=== PATIENT | female | born 2000 | race African-American/Black ===

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

== ENCOUNTER 2020-08-15 23:37 | Emergency (ER) | payer OTHER ==
[~2020-08-15] VITALS: Ht 172.7 cm; Wt 80.9 kg
[~2020-08-15 23:37] MED LIST changes: -CLIN300C8 PO; +CLIN300C9 PO
[2020-08-15 23:40] VITALS: BP 137/89
[2020-08-15] MEDS ORDERED: LIDOCAINE 2%/EPI 1:100,000 20 ML VIAL. INJ ONE (23:45)
[2020-08-15] MEDS ORDERED: NEOMY/BACITR/POLYMYXIN OINT PACKET. TP ONE (23:45)
--- NOTE | 2020-08-16 00:20 | RAD ---
XR RT WRIST 3VIEWS History: Reason: laceration w/ glass, eval for retained foreign body / Spl. Instructions: / History: Technique: 3 views right wrist Comparison: None. Findings: Normal alignment. No fracture. No radiopaque foreign body. Ventral wrist soft tissue injury. Impression: 1. No acute osseous abnormality. No radiopaque foreign body. Electronically signed by: Robin Hernandez DO (08/16/2020 12:18 AM) [facility]
--- NOTE | 2020-08-16 00:29 | PHYS DOC ---
Past Medical History Past Medical History: No Pertinent History Additional Past Medical Histor: DRUG O.D. Past Surgical History: No Surgical History Smoking Status: Never Smoker Alcohol Use: None Drug Use: None General Adult EDM: Chief Complaint: LACERATION/AVULSION HPI: HPI: Patient is a 19 year old [f__sex] who presents with [] Review of Systems: Review of Systems: Constitutional: Denies fever or chills Eyes: Denies redness or eye pain HENT: Denies nasal congestion or sore throat Respiratory: Denies cough or shortness of breath Cardiovascular: Denies chest pain or palpitations GI: Denies abdominal pain, nausea, or vomiting : Denies dysuria or hematuria Musculoskeletal: Denies back pain or joint pain Integument: Denies rash or skin lesions Neurologic: Denies headache, focal weakness or sensory changes Complete systems were reviewed and found to be within normal limits, except as documented in this note. Heart Score: C/O Chest Pain: N/A Current Medications: Current Medications Medications (Trade) Dose Ordered Sig/Collin Start Time Stop Time Status Last Admin Dose Admin Acetaminophen (Tylenol) 500 mg 1X ONCE 08/16/20 00:30 08/16/20 00:31 08/16/20 00:09 500 MG Diphtheria/ Tetanus/Acell Pertussis (ADACEL TDap SYRINGE) 0.5 ml ONCE ONCE 08/16/20 00:30 08/16/20 00:31 08/16/20 00:11 0.5 ML Lidocaine/ Epinephrine (LIDOCAINE 2%-EPI 1:100,000 multi-dose) 20 ml 1X ONCE 08/15/20 23:45 08/15/20 23:46 DC 08/15/20 23:48 20 ML Neomycin/ Polymyxin/ Bacitracin (Triple Antibiotic Ointment) 1 pkt 1X ONCE 08/15/20 23:45 08/15/20 23:46 DC 08/15/20 23:48 1 PKT Allergies: Allergies: Allergies Coded Allergies Type Severity Reaction Last Updated Verified No Known Allergies Allergy Unknown 12/08/16 Yes Physical Exam: PE: Constitutional: Well developed, well nourished, no acute distress, non-toxic appearance HENT: Normocephalic, atraumatic Eyes: PERRL, EOMI, conjunctiva normal, no discharge Neck: Normal range of motion, no tenderness, supple Lungs & Thorax: No respiratory distress, equal chest rise and fall Abdomen: Soft, no tenderness Skin: Warm, dry, no erythema, no rash Back: No tenderness, no CVA tenderness Extremities: No tenderness, ROM intact, no edema Neurologic: Alert and oriented X 3, normal motor function, normal sensory function, no focal deficits noted Psychologic: Affect normal, judgment normal EKG: EKG: [] Radiology/Procedures: Radiology/Procedures: PROCEDURE: WRIST 3V RIGHT XR RT WRIST 3VIEWS History: Reason: laceration w/ glass, eval for retained foreign body / Spl. Instructions: / History: Technique: 3 views right wrist Comparison: None. Findings: Normal alignment. No fracture. No radiopaque foreign body. Ventral wrist soft tissue injury. Impression: 1. No acute osseous abnormality. No radiopaque foreign body. Electronically signed by: Robin Hernandez DO (08/16/2020 12:18 AM) [facility] Course & Med Decision Making: Course & Med Decision Making Patient stable for discharge with outpatient follow-up with PCP. Discussed findings and plan with patient, who acknowledges understanding and agreement. Amanda Disclaimer: Last [employer] Disclaimer: This electronic medical record was generated, in whole or in part, using a voice recognition dictation system. Departure Departure Impression: Primary Impression: Laceration of wrist, right Qualified Codes: S61.511A - Laceration without foreign body of right wrist, initial encounter Disposition: HOME / SELF CARE / HOMELESS Condition: STABLE Referrals: NO PCP (PCP) Patient Instructions: Laceration Care, Adult, [id number] Additional Instructions: Try to leave pressure dressing on for as long as possible but less than 24 hours. Do not soak your wound. You may shower. Clean wound daily with soap and water. Change dressing 2 times daily. Use over the counter antibiotic ointment with each dressing change. Use [id number] ibuprofen and/or Tylenol for pain or discomfort. GONZALO FERNANDO DO Aug 16, 2020 00:29
[2020-08-16] MEDS ORDERED: DIPH,PERTUSS(ACELL),TET VAC/PF 0.5 ML SYRINGE. VAX IM ONE (00:30)
[2020-08-16] MEDS ORDERED: ACETAMINOPHEN 500 MG TABLET PO ONE (00:30)
== END 2020-08-16 00:42 | disposition home or self-care (01) ==
LOC: ER 23:37
DX: S61.511A Laceration without foreign body of right wrist, initial encounter (principal); W25.XXXA Contact with sharp glass, initial encounter; Y93.89 Activity, other specified; Y92.89 Other specified places as the place of occurrence of the external cause; Y99.8 Other external cause status
CPT/HCPCS: 73110; 90471; 90715; 99283; J3490

== ENCOUNTER 2020-12-24 15:36 | Emergency (ER) | payer OTHER ==
[~2020-12-24] VITALS: Ht 167.6 cm; Wt 72.7 kg
[~2020-12-24 15:36] MED LIST changes: +CLIN-94 PO; -CLIN300C9 PO
[2020-12-24 16:05] VITALS: BP 141/85
[2020-12-24] MEDS ORDERED: NEOM10DR32 AS (16:25)
--- NOTE | 2020-12-24 16:25 | PHYS DOC ---
Past Medical History Additional Past Medical Histor: DRUG O.D. (RAMIREZ DANG STORAGE ARCHITECT) Past Surgical History: No Surgical History [facility] Smoking Status: Never Smoker Alcohol Use: None Drug Use: None ([facility]) General Adult EDM: Chief Complaint: EARACHE/EAR PAIN HPI: HPI: Patient is a 20 year old female who presents with 1 day of left ear muffled hearing and pain. She denies nasal congestion, cough, fever, headache, dizziness, nausea, vomiting, abdominal pain. Only history is a drug overdose. Rates her pain at a 4 out of 10. She states she did pour water in the ear and also was digging around the ear with a Q-tip. (RAMIREZ DANG STORAGE ARCHITECT) Review of Systems: Review of Systems: Constitutional: Denies fever or chills. [] Eyes: Denies change in visual acuity. [] HENT: Denies nasal congestion or sore throat. + Left ear pain with muffled hearing [] Respiratory: Denies cough or shortness of breath. [] Cardiovascular: Denies chest pain or edema. [] GI: Denies abdominal pain, nausea, vomiting, bloody stools or diarrhea. [] : Denies dysuria. [] Musculoskeletal: Denies back pain or joint pain. [] Integument: Denies rash. [] Neurologic: Denies headache, focal weakness or sensory changes. [] Endocrine: Denies polyuria or polydipsia. [] Lymphatic: Denies swollen glands. [] Psychiatric: Denies depression or anxiety. [] (RAMIREZ DANG STORAGE ARCHITECT) Heart Score: C/O Chest Pain: No ([facility]) Allergies: Allergies: Allergies Coded Allergies Type Severity Reaction Last Updated Verified No Known Allergies Allergy Unknown 12/08/16 Yes ([facility]) Physical Exam: PE: Constitutional: Well developed, well nourished, no acute distress, non-toxic appearance. [] HENT: Normocephalic, atraumatic, bilateral external ears normal, oropharynx moist, no oral exudates, nose normal. Left otitis externa. Tympanic intact. Foggy tympanic. [] Eyes: PERRLA, EOMI, conjunctiva normal, no discharge. [] Neck: Normal range of motion, no tenderness, supple, no stridor. [] Cardiovascular:Heart rate regular rhythm, no murmur [] Lungs & Thorax: Bilateral breath sounds clear to auscultation [] Abdomen: Bowel sounds normal, soft, no tenderness, no masses, no pulsatile masses. [] Skin: Warm, dry, no erythema, no rash. [] Back: No tenderness, no CVA tenderness. [] Extremities: No tenderness, no cyanosis, no clubbing, ROM intact, no edema. [] Neurologic: Alert and oriented X 3, normal motor function, normal sensory function, no focal deficits noted. [] Psychologic: Affect normal, judgement normal, mood normal. [] (RAMIREZ DANG APRN) Current Patient Data: Vital Signs: Vital Signs Date Time Temp Pulse Resp B/P (MAP) Pulse Ox O2 Delivery O2 Flow Rate FiO2 12/24/20 16:05 98.4 98 18 141/85 (103) 99 Room Air 98.4 (RAMIREZ DANG APRN) EKG: EKG: [] (RAMIREZ DANG APRN) Radiology/Procedures: Radiology/Procedures: [] (RAMIREZ DNAG APRN) Course & Med Decision Making: Course & Med Decision Making Pertinent Labs and Imaging studies reviewed. (See chart for details) See HPI. Alert and oriented x4. Ambulatory steady gait. Speaks in full clear sentences. Skin pink warm and dry. Left tympanic intact but reddened canal. Tender canal. Foggy tympanic. Vital signs are within normal limits. No nasal congestion. [] (RAMIREZ DANG [employer]ORAGE ARCHITECT) Dragon Disclaimer: Dragon Disclaimer: This electronic medical record was generated, in whole or in part, using a voice recognition dictation system. (RAMIRE[employer] DANG [employer]OR[employer] ARCHITECT) Departure Departure Impression: Primary Impression: Otitis externa Qualified Codes: H60.502 - Unspecified acute noninfective otitis externa, left ear Disposition: HOME / SELF CARE / HOMELESS Condition: STABLE Referrals: NO PCP (PCP) Patient Instructions: Otitis Externa Additional Instructions: Follow-up with primary care provider. Use of medication as prescribed. Drink plenty of fluids. Take a allergy medication daily. Scripts Neomycin/Polymyxin B Sulf/Hc ([id number] EAR SUSP) 10 Ml Drops.susp 3 DROP TID for 5 Days, #10 ML 0 Refills Prov: RAMIREZ DANG APRN 12/24/20 Attending Signature Attending Signature I have reviewed the PA/FINANCIAL AGENT's note and plan of care. I was available for consultation as needed during the patient's visit in the emergency department. I agree with the clinical impression, plan, and disposition. (GONZALO FERNANDO DO) RAMIREZ DANG APRN Dec 24, 2020 16:25 GONZALO FERNANDO DO Dec 25, 2020 06:51
== END 2020-12-24 16:31 | disposition home or self-care (01) ==
LOC: ER 15:36
DX: H60.502 Unspecified acute noninfective otitis externa, left ear (principal)
CPT/HCPCS: 99283